=== PATIENT | male | born 1995 | race Caucasian/White ===

== ENCOUNTER 2017-10-12 21:19 | Emergency (ER) | payer SELFPAY, OTHER ==
[2017-10-13] MEDS: AZITHROMYCIN 250 MG TAB PO (01:05)
[2017-10-13] MEDS: CEFTRIAXONE 250 MG INJ IM (01:06)
== END 2017-10-13 03:45 | disposition home or self-care (01) ==
LOC: FTE 21:19 → E/R 10-13 03:45
DX: H00.012 Hordeolum externum right lower eyelid (principal); N34.1 Nonspecific urethritis
CPT/HCPCS: 87591; 96372; 99284-25

== ENCOUNTER 2018-03-18 15:14 | Emergency (ER) | payer OTHER ==
[2018-03-18] MEDS ORDERED: LORAZEPAM 2 MG INJ (15:37)
[2018-03-18] MEDS: LORAZEPAM 2 MG INJ IV (15:44)
[2018-03-18 15:45] LABS: ADD MAN DIFF? NO
[2018-03-18 15:49] LABS: BASOPHIL # 0.1 10^3/ul (0.0-0.1); BASOPHILS % 1.2 % (0.0-2.0); EOSINOPHILS # 0.1 10^3/ul (0.0-0.5); EOSINOPHILS % 1.5 % (0.0-7.0); HEMATOCRIT 44.1 % (42.0-52.0); HEMOGLOBIN 15.6 g/dl (14.0-18.0); LYMPHOCYTES # 1.6 10^3/ul (0.8-2.9); LYMPHOCYTES % 26.3 % (15.0-51.0); MEAN CORPUSCULAR HEMOGLOBIN 30.5 pg (29.0-33.0); MEAN CORPUSCULAR HGB CONC 35.4 g/dl (32.0-37.0); MEAN CORPUSCULAR VOLUME 86.1 fl (82.0-101.0); MEAN PLATELET VOLUME 11.1 fl (7.4-10.4); MONOCYTE # 0.4 10^3/ul (0.3-0.9); MONOCYTES % 6.4 % (0.0-11.0); NEUTROPHIL # 3.9 10^3/ul (1.6-7.5); NEUTROPHILS % 64.3 % (39.0-77.0); PLATELET COUNT 162 10^3/UL (140-415); RED BLOOD COUNT 5.12 10^6/ul (4.70-6.10); RED CELL DISTRIBUTION WIDTH 12.7 % (11.5-14.5)
[2018-03-18 15:49] LABS: WHITE BLOOD COUNT 6.1 10^3/ul (4.8-10.8)
[2018-03-18 16:07] LABS: ALANINE AMINOTRANSFERASE 38 IU/L (13-69); ALBUMIN/GLOBULIN RATIO 1.51; ALKALINE PHOSPHATASE 59 IU/L (42-121); ANION GAP 20 (8-16); ASPARTATE AMINO TRANSFERASE 34 IU/L (15-46); BILIRUBIN,INDIRECT 0.6 mg/dl (0-1.1); BILIRUBIN,TOTAL 0.6 mg/dl (0.2-1.3); BLOOD UREA NITROGEN 6 mg/dl (7-20); CALCIUM 9.7 mg/dl (8.4-10.2); CARBON DIOXIDE 23 mmol/L (21-31); CHLORIDE 106 mmol/L (97-110); CREATININE 0.66 mg/dl (0.61-1.24); GLUCOSE 118 mg/dl (70-220); POTASSIUM 3.7 mmol/L (3.5-5.1); SODIUM 145 mmol/L (135-144); TOTAL PROTEIN 8.3 g/dl (6.1-8.1)
[2018-03-18 16:08] LABS: ACETAMINOPHEN < 10.0 ug/ml (10.0-30.0); SALICYLATE < 1.0 mg/dl (5.0-30.0)
[2018-03-18 16:32] LABS: ADD UMIC NO; UR ASCORBIC ACID 40 mg/dL (NEGATIVE); UR BILIRUBIN (Dip) NEGATIVE (NEGATIVE); UR BLOOD (Dip) NEGATIVE (NEGATIVE); UR CLARITY CLEAR (CLEAR); UR COLOR YELLOW (YELLOW); UR GLUCOSE (Dip) NEGATIVE (NEGATIVE); UR KETONES (Dip) TRACE mg/dL (NEGATIVE); UR LEUKOCYTE ESTERASE (Dip) NEGATIVE Leu/ul (NEGATIVE); UR NITRITE (Dip) NEGATIVE (NEGATIVE); UR SPECIFIC GRAVITY (Dip) 1.012 (1.003-1.030); UR TOTAL PROTEIN (Dip) NEGATIVE (NEGATIVE); UR UROBILINOGEN (Dip) NEGATIVE (NEGATIVE)
[2018-03-18] MEDS ORDERED: ONDANSETRON 4 MG INJ (16:57)
[2018-03-18] MEDS: ONDANSETRON 4 MG INJ IV ×2 (16:59→18:29)
[2018-03-18 17:04] LABS: AMPHETAMINE/METHAMPHETAMINE Negative (NEGATIVE); BARBITURATES Negative (NEGATIVE); BENZODIAZEPINES Negative (NEGATIVE); CANNABINOIDS Negative (NEGATIVE); COCAINE Negative (NEGATIVE); OPIATES Negative (NEGATIVE)
[2018-03-18] MEDS: SOD CHLORIDE 0.9% 1,000 ML IV (19:51)
[2018-03-19] MEDS: ONDANSETRON 4 MG INJ IV (00:40)
== END 2018-03-19 17:15 | disposition home or self-care (01) ==
LOC: E/R 03-19 17:15
DX: R45.851 Suicidal ideations (principal); R51 Headache
CPT/HCPCS: 36415; 70450; 80053; 80307; 81003; 85025; 96374; 96375; 96376; 99285-25